=== PATIENT | female | born 1980 | race Caucasian/White ===

== ENCOUNTER 2018-07-09 15:22 | Emergency (ER) | payer MEDICARE ==
[2018-07-09 15:52] VITALS: BP 135/86
--- NOTE | 2018-07-09 16:24 | UC ---
Back Pain HPI - HPI Summary HPI Summary: Patient was pulled by her small dog and bounced down approximately 13 steps yesterday on her tailbone all the way down. - History of Current Complaint Chief Complaint: UCBackPain Stated Complaint: FELL DOWN STAIRS,LOW BACK/TAILBONE CONCERN Time Seen by Provider: 07/09/18 16:06 Hx Obtained From: Patient ?: No Onset/Duration: Sudden Onset Timing: Constant Severity Initially: Moderate Severity Currently: Mild Pain Intensity: 7 Character: Sharp, Aching - Pain and coccyx Aggravating Factor(s): Other - Increased pain with sitting Alleviating Factor(s): Rest Associated Signs And Symptoms: Positive: Negative. Negative: Numbness, Tingling , Bladder Incontinence, Bowel Incontinence - Allergies/Home Medications Allergies/Adverse Reactions: Allergies Allergy/AdvReac Type Severity Reaction Status Date / Time MS Aspirin [Aspirin] Allergy Unknown Verified 07/09/18 15:53 Reaction Details MS Gabapentin [Gabapentin] Allergy Unknown Verified 07/09/18 15:53 Reaction Details MS Levofloxacin Allergy Unknown Verified 07/09/18 15:53 [From Levaquin] Reaction Details Home Medications: Home Medications Albuterol HFA INHALER* [Ventolin HFA Inhaler*] 2 puff INH Q4H PRN 07/09/18 [ History Confirmed 07/09/18] Budesonide/Formote 160/4.5(NF) [Symbicort 160/4.5 (NF)] 2 puff INH BID 07/09/18 [History Confirmed 07/09/18] Cholecalciferol TAB* [Vitamin D TAB*] 1,000 unit PO DAILY 07/09/18 [History Confirmed 07/09/18] Diclofenac 1% GEL (NF) [Voltaren 1% GEL (NF)] 1 applic TOPICAL DAILY 07/09/18 [ History Confirmed 07/09/18] Ipratropium [place] [Atrovent Hfa] 12.9 gm IH DAILY 07/09/18 [History Confirmed 07/09/18] Montelukast Sodium TAB* [Singulair TAB*] 10 mg PO DAILY 07/09/18 [History Confirmed 07/09/18] Omeprazole 40 mg DAILY 07/09/18 [History Confirmed 07/09/18] oxyCODONE TAB* [Roxycodone TAB 5 mg*] 5 mg PO Q8H PRN 07/09/18 [History Confirmed 07/09/18] PMH/Surg Hx/FS Hx/Imm Hx Previously Healthy: Yes - Surgical History Surgical History: Yes Surgery Procedure, Year, and Place: Hysterectomy, partial thyroidectomy, 5 knee surgeries, kidney surgery - Social History Alcohol Use: Occasionally Substance Use Type: None Smoking Status (MU): Heavy Every Day Tobacco Smoker Review of Systems All Other Systems Reviewed And Are Negative: Yes Constitutional: Positive: Negative Skin: Positive: Negative Eyes: Positive: Negative ENT: Positive: Negative Respiratory: Positive: Negative Cardiovascular: Positive: Negative Gastrointestinal: Positive: Negative Genitourinary: Positive: Negative - Denies any saddle anesthesia Motor: Positive: Negative Neurovascular: Positive: Negative Musculoskeletal: Positive: Other: - Over the coccyx area Neurological: Positive: Negative. Negative: Weakness, Paresthesia, Numbness Psychological: Positive: Negative Is Patient Immunocompromised?: No Physical Exam Triage Information Reviewed: Yes Appearance: Well-Appearing, No Pain Distress, Well-Nourished Vital Signs: Initial Vital Signs Temp 97.7 F 07/09/18 15:49 Pulse 98 07/09/18 15:49 Resp 19 07/09/18 15:49 BP 135/86 07/09/18 15:49 Pulse Ox 98 07/09/18 15:49 Vital Signs Reviewed: Yes Eye Exam: Normal Respiratory Exam: Normal Cardiovascular Exam: Normal Abdominal Exam: Normal Bowel Sounds: Positive: Present Musculoskeletal: Positive: Strength Intact, ROM Intact, Other: - Peripheral pulses neuro sensation capillary refill good arm and leg strength against resistance. Pain on palpation of the coccyx area. Neurological Exam: Normal Neurological: Positive: Alert, Muscle Tone Normal Psychological Exam: Normal Skin Exam: Normal - No bruising, erythema, deformity or swelling are noted around the coccyx area. Back Pain Course/Dx - Course Course Of Treatment: She has been fairly comfortable here. She does see a pain management doctor for chronic pain related to her legs and does not have any pain medicine at home. I am giving her 6 tablets of Percocet for extreme coccyx pain to use at night. She may alternate that with Motrin. She is to use an inflatable donut to sit on for comfort and she may apply ice to the sore area over the next day or 2. We were discussing treatment of this and the fact that treatment would not change whether she has a fractured coccyx or not and she opted not to have an x-ray done. She is to follow-up with her primary care provider if any worsening symptoms. The pharmacy called here and they do not have Percocet 2.5 and requested that be changed to 5 mg of oxycodone which was done. The previous prescription was canceled. - Differential Dx/Diagnosis Differential Diagnosis/HQI/PQRI: Other - Intrusion coccyx Provider Diagnosis: Coccyx contusion Discharge - Sign-Out/Discharge Documenting (check all that apply): Patient Departure All imaging exams completed and their final reports reviewed: No Studies - Discharge Plan Condition: Fair Disposition: HOME Prescriptions: Oxycodone HCl/Acetaminophen [Percocet 5-325 mg Tablet] 1 tab PO Q6HR PRN #6 tablet MDD 8 PRN Reason: Pain Patient Education Materials: Coccyx Injury (ED) Referrals: RAMIRO Vicente [Primary Care Provider] - Additional Instructions: Purchase one of the inflatable doughnuts at the local pharmacy and sit on that for comfort. Apply ice to the sore area intermittently throughout the day. Avoid movements that cause pain. Follow-up with your own provider in 3 or 4 days if no improvement. - Billing Disposition and Condition Condition: FAIR Disposition: Home
== END 2018-07-09 16:28 | disposition home or self-care (01) ==
LOC: UCCORT 15:22
DX: S30.0XXA Contusion of lower back and pelvis, initial encounter (principal); F17.290 Nicotine dependence, other tobacco product, uncomplicated; Z88.1 Allergy status to other antibiotic agents; Z88.8 Allergy status to other drugs, medicaments and biological substances; W10.9XXA Fall (on) (from) unspecified stairs and steps, initial encounter; Y92.9 Unspecified place or not applicable
CPT/HCPCS: 99212; G0463